=== PATIENT | female | born 1985 | race Caucasian/White ===

== ENCOUNTER 2016-07-28 14:24 | Emergency (ER) | payer OTHER ==
[~2016-07-28] VITALS: Ht 147.3 cm; Wt 60.0 kg
[~2016-07-28 14:24] MED LIST: ACET325S8 PO; COMPTAB16 PO; ROBA750T3 PO; VALA1TAB PO
[2016-07-28 14:27] VITALS: BP 157/95; PULSE 103; RESP 16; TEMP 98.2; O2SAT 98
--- NOTE | 2016-07-28 14:43 | PD ---
HPI Chief Complaint: Dizziness Time Seen by Provider: 14:30 Travel History International Travel<30 days: No Contact w/Intl Traveler<30days: No Traveled to known affect area: No History of Present Illness HPI 30-year-old female history of HIV any ureteral therapy, hydrocephalus with PRODUCE ASSISTANT shunt placement, asthma. She presents for evaluation of lightheadedness, headaches, unsteady gait. She reports over the past 2 weeks she has been feeling lightheaded, been feeling unsteady when she walks like she is going to fall or lose balance. She also reports a pressure in the front and right side of her head over the course of these weeks. She also endorses periods of amnesia in which she does not remember the events of the day before. She denies any blurred vision, nausea or vomiting, fevers or chills, abdominal pain , dysuria, flank pain. She denies any trauma. She denies any recent illness. She reports that she has no point with neurologist Dr. Muse, whom she has never seen before, in 2 days however she was encouraged to come here by his office for evaluation of these symptoms and to have her shunt "checked out." She has no other complaints at this time. 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 ) Psychiatric: Yes ("BEHAVIORAL PROBLEMS", EXPLOSIVE D/O, MILD M.R.) Reproductive: No Respiratory: Yes Migraines: No Myocardial Infarction: No Seizures: No ?: Not LMP: DEPO Past Surgical History Abdominal Surgery: No Cardiac Surgery: No Ear Surgery: No Endocrine Surgery: No Eye Surgery: No Genitourinary Surgery: No Gynecologic Surgery: No Neurologic Surgery: Yes (PRODUCE ASSISTANT SHUNT) Oral Surgery: No Thoracic Surgery: No Other Surgery: Yes (PRODUCE ASSISTANT SHUNT RT SIDE OF HEAD AT ) Social History Alcohol Use: No Tobacco Use: Yes (quit 2011) Substance Use: No Allergies-Medications (Allergen,Severity, Reaction): Coded Allergies: No Known Allergies (Verified , 07/28/16) Reported Meds & Prescriptions Reported Meds & Active Scripts Active Zofran Odt (Ondansetron Odt) 4 Mg Tab 4 Mg SL Q6HR PRN 5 Days Meclizine (Meclizine HCl) 25 Mg Tab 25 Mg PO TID PRN 10 Days Review of Systems Except as stated in HPI: all other systems reviewed are Neg Physical Exam Narrative GENERAL: Pleasant well-developed well-nourished female in no acute distress answering questions appropriately. Her vital signs have been reviewed SKIN: Warm and dry. HEAD: Atraumatic. Normocephalic. EYES: Pupils equal and round. No scleral icterus. No injection or drainage. ENT: No nasal bleeding or discharge. Mucous membranes pink and moist. NECK: Trachea midline. No JVD. CARDIOVASCULAR: Regular rate and rhythm. No murmur appreciated. RESPIRATORY: No accessory muscle use. Clear to auscultation. Breath sounds equal bilaterally. GASTROINTESTINAL: Abdomen soft, non-tender, nondistended. Hepatic and splenic margins not palpable. MUSCULOSKELETAL: No obvious deformities. No edema. NEUROLOGICAL: Awake and alert. No obvious cranial nerve deficits. Motor grossly within normal limits. Normal speech. Normal rapid alternating movements , [id number] examination. There is some ataxia when walking heel to toe. PSYCHIATRIC: Appropriate mood and affect; insight and judgment normal. Data Data Last Documented VS Vital Signs Date Time Temp Pulse Resp B/P Pulse Ox O2 Delivery O2 Flow Rate FiO2 07/28/16 18:20 78 16 116/74 100 07/28/16 14:27 98.2 Orders Electrocardiogram (07/28/16 14:37) Ed Urine Pregnancytest Poc (07/28/16 14:37) Complete Blood Count With Diff (07/28/16 14:37) Magnesium (Mg) (07/28/16 14:37) Shunt Series (07/28/16 ) Drug Screen, Random Urine (07/28/16 15:50) Ct Brain W/O Iv Contrast(Rout) (07/28/16 15:51) Comprehensive Metabolic Panel (07/28/16 15:15) Meclizine (Antivert) (07/28/16 16:45) Sodium Chlor 0.9% 1000 Ml Inj (Ns 1000 M (07/28/16 16:37) Labs Laboratory Tests Test 07/28/16 07/28/16 15:15 16:00 White Blood Count 8.7 TH/MM3 Red Blood Count 4.98 MIL/MM3 Hemoglobin 15.9 GM/DL Hematocrit 46.7 % Mean Corpuscular Volume 93.7 FL Mean Corpuscular Hemoglobin 31.9 PG Mean Corpuscular Hemoglobin 34.0 % Concent Red Cell Distribution Width 13.3 % Platelet Count 302 TH/MM3 Mean Platelet Volume 9.2 FL Neutrophils (%) (Auto) 68.7 % Lymphocytes (%) (Auto) 21.1 % Monocytes (%) (Auto) 8.5 % Eosinophils (%) (Auto) 1.2 % Basophils (%) (Auto) 0.5 % Neutrophils # (Auto) 6.0 TH/MM3 Lymphocytes # (Auto) 1.8 TH/MM3 Monocytes # (Auto) 0.7 TH/MM3 Eosinophils # (Auto) 0.1 TH/MM3 Basophils # (Auto) 0.0 TH/MM3 CBC Comment DIFF FINAL Differential Comment Sodium Level 142 MEQ/L Potassium Level 3.5 MEQ/L Chloride Level 105 MEQ/L Carbon Dioxide Level 28.2 MEQ/L Anion Gap 9 MEQ/L Blood Urea Nitrogen 13 MG/DL Creatinine 1.01 MG/DL Estimat Glomerular Filtration 65 ML/MIN Rate Random Glucose 88 MG/DL Calcium Level 9.1 MG/DL Magnesium Level 2.0 MG/DL Total Bilirubin 0.5 MG/DL Aspartate Amino Transf 21 U/L (AST/SGOT) Alanine Aminotransferase 32 U/L (ALT/SGPT) Alkaline Phosphatase 86 U/L Total Protein 8.3 GM/DL Albumin 4.3 GM/DL Urine Opiates Screen NEG Urine Barbiturates Screen NEG Urine Amphetamines Screen NEG Urine Benzodiazepines Screen NEG Urine Cocaine Screen NEG Urine Cannabinoids Screen NEG MDM Medical Decision Making Medical Screen Exam Complete: Yes Emergency Medical Condition: Yes Medical Record Reviewed: Yes Differential Diagnosis Electrolyte imbalance, dehydration, PRODUCE ASSISTANT shunt malfunction, hydrocephalus, arrhythmia Narrative Course 30-year-old female with history of HIV, hydrocephalus with PRODUCE ASSISTANT shunt, asthma who has been having some lightheadedness, headaches, feeling off balance when walking, periods of amnesia for the past 2 weeks. The patient was initially seen in triage were basic lab work, CT of the brain, EKG and PRODUCE ASSISTANT shunt series have been ordered. The patient will be moved to medical bed when one becomes available. Procedures EKG Prior to Arrival: Yes Scripts Ondansetron Odt (Zofran Odt)4 Mg Tab4 Mg SL Q6HR PRN (Nausea/Vomiting) 5 Days Ref 0 Prov:Marie Cervantes 07/28/16 Meclizine 25 Mg Tab25 Mg PO TID PRN (VERTIGO) 10 Days Ref 0 Prov:Marie Cervantes 07/28/16 Prosper Harrison Jul 28, 2016 14:43
--- NOTE | 2016-07-28 15:16 | RADRPT ---
EXAM DATE/TIME: 07/28/2016 15:00 [facility] COMPARISON: No previous studies available for comparison. INDICATIONS : Headaches. Dizziness. MEDICAL HISTORY : None. SURGICAL HISTORY : Ventriculoperitoneal shunt. ENCOUNTER: Initial ACUITY: 1 day PAIN SCORE: 1/10 LOCATION: skull FINDINGS: Radiograph of the skull, neck, chest and abdomen performed to evaluate shunt patency. The shunt cath eter is seen entering the left parieto-occipital region with its tip in the region of the body of the lateral ventricle . The catheter is continuous in its course terminating in the abdomen No catheter disruption is identif ied. The visualized heart, lungs and abdominal structures are intact. CONCLUSION: Intact shunt. Richi Robertson MD on July 28, 2016 at 15:14 Board Certified Radiologist. This report was verified electronically.
[2016-07-28 15:49] LABS: BASOPHIL % 0.5 % (0.0-2.0); EOSINOPHIL # 0.1 TH/MM3 (0-0.4); EOSINOPHIL % 1.2 % (0.0-4.0); HEMATOCRIT 46.7 % (35.0-46.0); HEMO FLAGS DIFF FINAL; LYMPH % 21.1 % (9.0-44.0); LYMPHOCYTE # 1.8 TH/MM3 (1.0-4.8); MEAN CELL VOLUME 93.7 FL (80.0-100.0); MEAN CORPUSCULAR HEMOGLOBIN 31.9 PG (27.0-34.0); MONO % 8.5 % (0.0-8.0); NEUT % 68.7 % (16.0-70.0); PLATELET COUNT 302 TH/MM3 (150-450); RED BLOOD COUNT 4.98 MIL/MM3 (4.00-5.30); RED CELL DISTRIBUTION WIDTH 13.3 % (11.6-17.2); WHITE BLOOD COUNT 8.7 TH/MM3 (4.0-11.0)
[2016-07-28 15:57] LABS: ANION GAP 9 MEQ/L (5-15); BICARBONATE 28.2 MEQ/L (21.0-32.0); BLOOD UREA NITROGEN 13 MG/DL (7-18); CHLORIDE 105 MEQ/L (98-107); GLOMERULAR FILTRATION RATE 65 ML/MIN (>89); POTASSIUM 3.5 MEQ/L (3.5-5.1); SODIUM (NA) 142 MEQ/L (136-145)
--- NOTE | 2016-07-28 15:58 | PD ---
Physical Exam Date Seen by Provider: Jul 28, 2016 Narrative For full history and physical examination please see previous provider's note. Workup was initiated in triage. Data Data Last Documented VS Vital Signs Date Time Temp Pulse Resp B/P Pulse Ox O2 Delivery O2 Flow Rate FiO2 07/28/16 14:27 98.2 103 16 157/95 98 Orders Electrocardiogram (07/28/16 14:37) Ed Urine Pregnancytest Poc (07/28/16 14:37) Complete Blood Count With Diff (07/28/16 14:37) Magnesium (Mg) (07/28/16 14:37) Shunt Series (07/28/16 ) Drug Screen, Random Urine (07/28/16 15:50) Ct Brain W/O Iv Contrast(Rout) (07/28/16 15:51) Comprehensive Metabolic Panel (07/28/16 15:15) Meclizine (Antivert) (07/28/16 16:45) Sodium Chlor 0.9% 1000 Ml Inj (Ns 1000 M (07/28/16 16:37) Labs Laboratory Tests Test 07/28/16 07/28/16 15:15 16:00 White Blood Count 8.7 TH/MM3 Red Blood Count 4.98 MIL/MM3 Hemoglobin 15.9 GM/DL Hematocrit 46.7 % Mean Corpuscular Volume 93.7 FL Mean Corpuscular Hemoglobin 31.9 PG Mean Corpuscular Hemoglobin 34.0 % Concent Red Cell Distribution Width 13.3 % Platelet Count 302 TH/MM3 Mean Platelet Volume 9.2 FL Neutrophils (%) (Auto) 68.7 % Lymphocytes (%) (Auto) 21.1 % Monocytes (%) (Auto) 8.5 % Eosinophils (%) (Auto) 1.2 % Basophils (%) (Auto) 0.5 % Neutrophils # (Auto) 6.0 TH/MM3 Lymphocytes # (Auto) 1.8 TH/MM3 Monocytes # (Auto) 0.7 TH/MM3 Eosinophils # (Auto) 0.1 TH/MM3 Basophils # (Auto) 0.0 TH/MM3 CBC Comment DIFF FINAL Differential Comment Sodium Level 142 MEQ/L Potassium Level 3.5 MEQ/L Chloride Level 105 MEQ/L Carbon Dioxide Level 28.2 MEQ/L Anion Gap 9 MEQ/L Blood Urea Nitrogen 13 MG/DL Creatinine 1.01 MG/DL Estimat Glomerular Filtration 65 ML/MIN Rate Random Glucose 88 MG/DL Calcium Level 9.1 MG/DL Magnesium Level 2.0 MG/DL Total Bilirubin 0.5 MG/DL Aspartate Amino Transf 21 U/L (AST/SGOT) Alanine Aminotransferase 32 U/L (ALT/SGPT) Alkaline Phosphatase 86 U/L Total Protein 8.3 GM/DL Albumin 4.3 GM/DL Urine Opiates Screen NEG Urine Barbiturates Screen NEG Urine Amphetamines Screen NEG Urine Benzodiazepines Screen NEG Urine Cocaine Screen NEG Urine Cannabinoids Screen NEG MDM Medical Record Reviewed: Yes Supervised Visit with SHASHI: No Interpretation(s) Last Impressions Head CT 07/28/16 1551 Signed Impressions: Service Date/Time: Thursday, July 28, 2016 16:13 - CONCLUSION: 1. Stable exam compared to previous dated 02/25/06. Yunier Welch MD Shunt Study (Imaging) 07/28/16 0000 Signed Impressions: Service Date/Time: Thursday, July 28, 2016 15:00 - CONCLUSION: Intact shunt. Richi Robertson MD Laboratory Tests Test 07/28/16 07/28/16 15:15 16:00 White Blood Count 8.7 TH/MM3 Red Blood Count 4.98 MIL/MM3 Hemoglobin 15.9 GM/DL Hematocrit 46.7 % Mean Corpuscular Volume 93.7 FL Mean Corpuscular Hemoglobin 31.9 PG Mean Corpuscular Hemoglobin 34.0 % Concent Red Cell Distribution Width 13.3 % Platelet Count 302 TH/MM3 Mean Platelet Volume 9.2 FL Neutrophils (%) (Auto) 68.7 % Lymphocytes (%) (Auto) 21.1 % Monocytes (%) (Auto) 8.5 % Eosinophils (%) (Auto) 1.2 % Basophils (%) (Auto) 0.5 % Neutrophils # (Auto) 6.0 TH/MM3 Lymphocytes # (Auto) 1.8 TH/MM3 Monocytes # (Auto) 0.7 TH/MM3 Eosinophils # (Auto) 0.1 TH/MM3 Basophils # (Auto) 0.0 TH/MM3 CBC Comment DIFF FINAL Differential Comment Sodium Level 142 MEQ/L Potassium Level 3.5 MEQ/L Chloride Level 105 MEQ/L Carbon Dioxide Level 28.2 MEQ/L Anion Gap 9 MEQ/L Blood Urea Nitrogen 13 MG/DL Creatinine 1.01 MG/DL Estimat Glomerular Filtration 65 ML/MIN Rate Random Glucose 88 MG/DL Calcium Level 9.1 MG/DL Magnesium Level 2.0 MG/DL Total Bilirubin 0.5 MG/DL Aspartate Amino Transf 21 U/L (AST/SGOT) Alanine Aminotransferase 32 U/L (ALT/SGPT) Alkaline Phosphatase 86 U/L Total Protein 8.3 GM/DL Albumin 4.3 GM/DL Urine Opiates Screen NEG Urine Barbiturates Screen NEG Urine Amphetamines Screen NEG Urine Benzodiazepines Screen NEG Urine Cocaine Screen NEG Urine Cannabinoids Screen NEG Vital Signs Date Time Temp Pulse Resp B/P Pulse Ox O2 Delivery O2 Flow Rate FiO2 07/28/16 14:27 98.2 103 16 157/95 98 Differential Diagnosis Mood disorder versus intoxication versus substance abuse versus vertigo versus otitis media versus sinusitis versus hydrocephalus versus other Narrative Course Patient is a 30-year-old female presenting to the emergency department for evaluation of dizziness, memory issues, gait abnormality, headache. Her symptoms have been ongoing for 2 weeks. 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 CT of the brain, labs ordered and pending. Patient appears drowsy, she does endorse marijuana use yesterday. She reports compliance with her HIV medications as well as her psychiatric medications. CBC is unremarkable Chemistry is unremarkable Tox screen is negative CT scan of the brain is stable compared to prior dictated on 02/23/06 Shunt series shows an intact shunt Patient was given meclizine and IV fluids in the emergency department. Patient be discharged home with meclizine and Zofran. She is encouraged to follow-up with her primary doctor. She is encouraged to avoid any illicit drug use. She is advised to return to emergency department for any new or worsening symptoms. Patient verbalized understanding of these instructions. Patient is stable for discharge. Diagnosis Primary Impression: Vertigo Referrals: Primary Care Physician Patient Instructions: General Instructions, Vertigo (ED) Additional Instruction: Follow-up with her primary doctor Follow-up with your neurologist Take medications as directed Return to emergency department for any new or worsening symptoms Change positions slowly Med/Other Pt SpecificInfo: Prescription(s) given Scripts Ondansetron Odt (Zofran Odt)4 Mg Tab4 Mg SL Q6HR PRN (Nausea/Vomiting) 5 Days Ref 0 Prov:Marie Cervantes 07/28/16 Meclizine 25 Mg Tab25 Mg PO TID PRN (VERTIGO) 10 Days Ref 0 Prov:Marie Cervantes 07/28/16 Disposition: 01 DISCHARGE HOME Condition: Stable Marie Cervantes Jul 28, 2016 15:58
[2016-07-28 16:08] LABS: ALKALINE PHOSPHATASE 86 U/L (45-117); TOTAL BILIRUBIN ADULT 0.5 MG/DL (0.2-1.0)
[2016-07-28 16:17] LABS: ALT (GPT) 32 U/L (10-53); AST (GOT) 21 U/L (15-37)
--- NOTE | 2016-07-28 16:22 | RADRPT ---
EXAM DATE/TIME: 07/28/2016 16:13 [facility] COMPARISON: CT BRAIN W/O CONTRAST, February 24, 2008, 1:35. INDICATIONS : Recurrent dizziness and headache. RADIATION DOSE: 31.40 CTDIvol (mGy) MEDICAL HISTORY : Hydrocephalus. SURGICAL HISTORY : CRIME SCENE INVESTIGATOR shunt. ENCOUNTER: Initial ACUITY: 2 weeks PAIN SCALE: 4/10 LOCATION: cranial TECHNIQUE: Multiple contiguous axial images were obtained of the head. Using automated exposure control and adj ustment of the mA and/or kV according to patient size, radiation dose was kept as low as reasonably a chievable to obtain optimal diagnostic quality images. FINDINGS: The examination demonstrates a ventriculostomy shunt which enters from a right posterior parietal luann barragan. The ventricles appear normal in size. They're unchanged in size compared to the previous exami [facility] [place] dated 02/24/08. No abnormal extra-axial fluid collections are seen. No findings to indicate acute cortical infarction are present. The appearance of the posterior fossa is unremarkable. The bony structures of the skull are intact. CONCLUSION: 1. Stable exam compared to previous dated 02/25/06. Yunier Welch MD Board Certified Radiologist. This report was verified electronically.
[2016-07-28] MEDS ORDERED: SODIUM CHLOR 0.9% 1000 ML INJ 1,000 ML IV ONE (16:37)
[2016-07-28] MEDS ORDERED: MECLIZINE HCL 25 MG TAB PO ONE (16:45)
[2016-07-28 17:40] LABS: AMPHETAMINE, URINE NEG (NEG); BARBITURATES, URINE NEG (NEG); COCAINE, URINE NEG (NEG)
[2016-07-28] MEDS ORDERED: ZOFR4TAB3 SL (18:12)
[2016-07-28] MEDS ORDERED: MECL-62 PO (18:12)
[2016-07-28 18:20] VITALS: BP 116/74
--- NOTE | 2016-07-29 11:17 | EKG ---
Date Performed: 07/28/2016 Time Performed: 14:45:54 PTAGE: 30 years EKG: Sinus rhythm ABNORMAL RHYTHM ECG PREVIOUS TRACING : 02/19/2015 16.13 DOCTOR: Richi Crockett Interpretating Date/Time 07/29/2016 11:16:17
== END 2016-07-28 18:25 | disposition home or self-care (01) ==
LOC: NEPE 14:24
DX: R42 Dizziness and giddiness (principal); J45.909 Unspecified asthma, uncomplicated; R51 Headache; R26.9 Unspecified abnormalities of gait and mobility; R94.31 Abnormal electrocardiogram [ECG] [EKG]
CPT/HCPCS: 70250; 70450; 71010; 72040; 74000; 80053; 80307; 83735; 84703; 85025; 93005; 99284; J7030

== ENCOUNTER 2017-03-11 14:01 | Emergency (ER) | payer OTHER ==
[~2017-03-11] VITALS: Ht 147.3 cm; Wt 56.0 kg
[~2017-03-11 14:01] MED LIST changes: -ACET325S8 PO; -COMPTAB16 PO; +MECL-62 PO; -ROBA750T3 PO; -VALA1TAB PO; +ZOFR4TAB3 SL
[2017-03-11 14:06] VITALS: BP 149/76; PULSE 88; RESP 22; TEMP 98.9; O2SAT 100
--- NOTE | 2017-03-11 14:15 | PD ---
Physical Exam Time Seen by Provider: 14:13 Narrative 31-year-old female presents to the emergency Department with complaint of mid back pain since yesterday. Reports lifting heavy boxes at work. Denies traumatic injury. Denies IV drug use or cancer. Patient ambulatory and triaged. Patient seen in triage. Vital signs reviewed. Patient awaiting bed placement. Data Data Last Documented VS Vital Signs Date Time Temp Pulse Resp B/P (MAP) Pulse Ox O2 Delivery O2 Flow Rate FiO2 03/11/17 14:06 98.9 88 22 149/76 (100) 100 Room Air MDM Supervised Visit with SHASHI: Fern Mehta Mar 11, 2017 14:15
--- NOTE | 2017-03-11 14:54 | PD ---
HPI Chief Complaint: Back/ Neck Pain or Injury Time Seen by Provider: 14:38 Travel History International Travel<30 days: No Contact w/Intl Traveler<30days: No Traveled to known affect area: No History of Present Illness HPI 31 year-old female presents to the emergency department for evaluation of thoracic back pain. She states this has been intermittently occurring over the last couple years but worse over the last few days. Denies any new injury. Denies focal deficits or weakness. States the pain is a 10 out of 10 and "unbearable." Denies IV drug use. States she does have a history of HIV and states that her CD4 count is "good." States that she is followed by Dr. Mcghee and has an appointment to look further into this back pain coming up. Digestive tenderness. No difficulty breathing. Cannot think of any exacerbating or alleviating charities. Has no other symptoms to report. Of note, patient does report intermittent falls and calcium deficiency. This is not new for her. Pain did not get acutely worse following a fall. 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 ) Psychiatric: Yes ("BEHAVIORAL PROBLEMS", EXPLOSIVE D/O, MILD M.R.) Reproductive: No Respiratory: Yes Migraines: No Myocardial Infarction: No Seizures: No ?: Not : 0 Past Surgical History Abdominal Surgery: No Cardiac Surgery: No Ear Surgery: No Endocrine Surgery: No Eye Surgery: No Genitourinary Surgery: No Gynecologic Surgery: No Neurologic Surgery: Yes (LIGHT RAIL VEHICLE OPERATOR SHUNT) Oral Surgery: No Thoracic Surgery: No Other Surgery: Yes (LIGHT RAIL VEHICLE OPERATOR SHUNT RT SIDE OF HEAD AT ) Social History Alcohol Use: No Tobacco Use: Yes Substance Use: No Allergies-Medications (Allergen,Severity, Reaction): Coded Allergies: No Known Allergies (Verified , 03/11/17) Reported Meds & Prescriptions Reported Meds & Active Scripts Active Robaxin (Methocarbamol) 500 Mg Tab 500 Mg PO QID PRN Ibuprofen 600 Mg Tab 600 Mg PO Q8H PRN Zofran Odt (Ondansetron Odt) 4 Mg Tab 4 Mg SL Q6HR PRN 5 Days Meclizine (Meclizine HCl) 25 Mg Tab 25 Mg PO TID PRN 10 Days Review of Systems Except as stated in HPI: all other systems reviewed are Neg Physical Exam Narrative GENERAL: Well-nourished, well-developed female patient, ambulatory no acute distress. SKIN: Focused skin assessment warm/dry. HEAD: Normocephalic. Atraumatic EYES: No scleral icterus. No injection or drainage. NECK: Supple, trachea midline. No JVD or lymphadenopathy. CARDIOVASCULAR: Regular rate and rhythm without murmurs, gallops, or rubs. RESPIRATORY: Breath sounds equal bilaterally. No accessory muscle use. GASTROINTESTINAL: Abdomen soft, non-tender, nondistended. MUSCULOSKELETAL: No cyanosis, or edema. Scoliotic appearance to the thoracic spine. Patient does report pain to palpation along the thoracic spine. No crepitus. No step-off. BACK: Nontender without obvious deformity. No CVA tenderness. Data Data Last Documented VS Vital Signs Date Time Temp Pulse Resp B/P (MAP) Pulse Ox O2 Delivery O2 Flow Rate FiO2 03/11/17 16:16 03/11/17 14:06 98.9 88 22 100 Room Air Orders Orders Spine, Thoracic-Ap/Lat/Sw(3vw) (03/11/17 ) Ketorolac Inj (Toradol Inj) (03/11/17 15:00) Orphenadrine Inj (Norflex Inj) (03/11/17 15:00) Ed Discharge Order (03/11/17 15:43) MDM Medical Decision Making Medical Screen Exam Complete: Yes Emergency Medical Condition: Yes Medical Record Reviewed: Yes Differential Diagnosis Muscle spasm versus strain versus discogenic pain versus radiculopathy versus fracture Narrative Course 31 year-old female presents to emergency department for evaluation of thoracic back pain. This has been intermittently ongoing for the last 2 years but acutely worse recently with no injury. Is treated for pain. X-ray imaging confirms no acute bony abnormality. I've encouraged the patient to continue follow-up with her outpatient provider for further evaluation of this. Upon reassessment, patient's pain has reduced significantly. She'll be discharged at this time. Diagnosis Primary Impression: Back pain Qualified Codes: M54.6 - Pain in thoracic spine Referrals: Primary Care Physician Patient Instructions: Back Pain (GEN), General Instructions Additional Instructions: Ice and/or warm received may help alleviate symptoms Avoid activity that exacerbates pain Keep your appointment with your primary care provider Return immediately with any acute worsening symptoms Med/Other Pt SpecificInfo: Prescription(s) given Scripts Methocarbamol (Robaxin) 500 Mg Tab 500 MG PO QID Y for MUSCLE SPASM, #20 TAB 0 Refills Prov: Kamla Aguilar 03/11/17 Ibuprofen (Ibuprofen) 600 Mg Tab 600 MG PO Q8H Y for PAIN, #30 TAB 0 Refills Prov: Kamla Aguilar 03/11/17 Disposition: 01 DISCHARGE HOME Condition: Stable Kamla Aguilar Mar 11, 2017 14:54
[2017-03-11] MEDS ORDERED: KETOROLAC TROMETHAMINE 60 MG/2 ML (IM) VIAL IM ONE (15:00)
[2017-03-11] MEDS ORDERED: ORPHENADRINE INJ 60 MG/2 ML AMP IM ONE (15:00)
--- NOTE | 2017-03-11 15:40 | RADRPT ---
EXAM DATE/TIME: 03/11/2017 15:30 [facility] COMPARISON: No previous studies available for comparison. INDICATIONS : Mid-back pain off and on for six months, no known injury. MEDICAL HISTORY : None. SURGICAL HISTORY : Ventriculoperitoneal shunt. ENCOUNTER: Initial ACUITY: 4 - 6 months PAIN SCORE: 9/10 LOCATION: thoracic spine. FINDINGS: A mild scoliotic curvature. Vertebral body height is maintained. No evidence of fracture or subluxat ion. Pedicles are intact at all levels. The paravertebral reflections are not thickened. A catheter overlies the right chest presumably related to ventriculoperitoneal shunt. CONCLUSION: 1. Mild scoliotic curvature. No acute abnormality. Chad Lockwood Jr., MD on March 11, 2017 at 15:37 Board Certified Radiologist. This report was verified electronically.
[2017-03-11] MEDS ORDERED: IBUP-232 PO (15:55)
[2017-03-11] MEDS ORDERED: ROBA500T PO (15:55)
== END 2017-03-11 16:16 | disposition home or self-care (01) ==
LOC: NEPK 14:01
DX: M54.6 Pain in thoracic spine (principal); J45.909 Unspecified asthma, uncomplicated; F41.9 Anxiety disorder, unspecified; F32.9 Major depressive disorder, single episode, unspecified; Z21 Asymptomatic human immunodeficiency virus [HIV] infection status; F17.200 Nicotine dependence, unspecified, uncomplicated; Z79.899 Other long term (current) drug therapy
CPT/HCPCS: 72072; 96372; 99284; J1885; J2360